=== PATIENT | male | born 1940 | race Caucasian/White ===

== ENCOUNTER 2018-07-13 11:32 | Day surgery (SDC) | payer MEDICARE, BC ==
[~2018-07-13] VITALS: Ht 180.3 cm; Wt 77.5 kg
[~2018-07-13 11:32] MED LIST: ALPR.25 PO; AMLO5; ATEN50 PO; ATOR80 PO; Alprazolam0.5 MG; Aspirin EC81 MG; CARV25 PO; CLOP75 PO; FURO40 PO; LOSA25 PO; METO25; PANT40 PO; POTASSIUM99 MG; Potassium Chlo10 ME1 PO; SELENIUM PO; Valium5 MG PO; WARF2 PO; WARF5; WARF5 PO; WARF7.5 PO; WARFARIN SODIUM 2 MG; [UNRECOGNIZED DRUG - OTHER] PO
--- NOTE | 2018-07-13 13:14 | NUR ---
07/13/18 1314 Naz Miller PT TRANSFERRED TO CHAIR WELL AND STEADY. PT ANVIK. DENIES PAIN. PT TOLERATING COFFEE
== END 2018-07-13 13:29 | disposition home or self-care (01) ==
LOC: ORSCSDS 11:32
PROVIDERS: Ophthalmology
PROC: 08RJ3JZ Replacement of Right Lens with Synthetic Substitute, Percutaneous Approach (ICD-10-PCS; principal; 2018-07-13 13:00)
DX: H25.11 Age-related nuclear cataract, right eye (principal); H21.81 Floppy iris syndrome; I10 Essential (primary) hypertension; I48.91 Unspecified atrial fibrillation; Z79.01 Long term (current) use of anticoagulants; I25.2 Old myocardial infarction; I50.9 Heart failure, unspecified; Z79.899 Other long term (current) drug therapy
CPT/HCPCS: J2001; J2250; J3010; V2632

== ENCOUNTER 2018-08-31 13:45 | Day surgery (SDC) | payer MEDICARE, BC ==
[~2018-08-31] VITALS: Ht 180.3 cm; Wt 76.6 kg
[2018-08-31] MEDS ORDERED: ENTRESTO 49 MG1 EACH (14:20)
== END 2018-08-31 15:58 | disposition home or self-care (01) ==
LOC: ORSCSDS 13:45
PROVIDERS: Ophthalmology
PROC: 08RK3JZ Replacement of Left Lens with Synthetic Substitute, Percutaneous Approach (ICD-10-PCS; principal; 2018-08-31 15:00)
DX: H25.12 Age-related nuclear cataract, left eye (principal); H21.81 Floppy iris syndrome; I10 Essential (primary) hypertension; I48.91 Unspecified atrial fibrillation; I25.2 Old myocardial infarction; Z79.01 Long term (current) use of anticoagulants; Z79.899 Other long term (current) drug therapy
CPT/HCPCS: J2001; J2250; J3010; J7120; V2632

== ENCOUNTER 2019-05-15 10:12 | Day surgery (SDC) | payer MEDICARE, BC ==
[~2019-05-15] VITALS: Ht 180.3 cm; Wt 76.0 kg
[~2019-05-15 10:12] MED LIST changes: +ENTRESTO 49 MG1 EACH
[2019-05-15] MEDS ORDERED: Valium5 MG PO (12:37)
--- NOTE | 2019-05-15 17:20 | NUR ---
ASSUMED PATIENT CARE. ASSESSED WOUND SITE, NO DRAINAGE NOTED. PATIENT HARD OF HEARING BUT ABLE TO CONVERSE WITH NURSING STAFF. NO SIGNS OF ACUTE DISTRESS. PATIENT REEDUCATED ON NEED TO KEEP HEAD BACK TO KEEP PRESSURE OFF INSERTION SITE.
--- NOTE | 2019-05-15 18:51 | NUR ---
PATIENT BP RUNNING 150S-170S SYSTOLIC SINCE ARRIVING FROM [facility]. DR. RUSS CALLED, LEFT MESSAGE. WILL PLAN TO TRY AGAIN TO GET ORDERS FOR PRN HTN MEDS.
--- NOTE | 2019-05-15 19:30 | NUR ---
PATIENT RESTING QUIETLY IN BED, LAYING FLAT DUE TO LEFT GROIN ACCESS SITE. LEFT GROIN SITE WITH DRESSING CD&I AREA AROUND SITE SOFT WITH NO OOZING, SWELLING OR BRUISING SEEN. PULSES 1+ TO BOTH FEET. PATIENT DENIES PAIN AT THIS TIME. PATIENT REPOSITIONED IN BED AND HOB ELEVATED AND KNEES ELEVATED. LEFT GROIN SITE REMAINING UNCHANGED. PATIENT USING URINAL WITHOUT DIFFICULTY.
--- NOTE | 2019-05-15 19:31 | NUR ---
RELINQUISHED PATIENT CARE.
--- NOTE | 2019-05-15 19:35 | NUR ---
PATIENT ARRIVED FROM [facility] THIS EVENING. LEFT GROIN PUNCTURE WOUND, NO SIGNS OF DISCHARGE NOTED THIS SHIFT. PATIENT REMAINED HYPERTENSIVE THROUGH END OF SHIFT, 150S-170S SYSTOLIC. PATIENT DENIES CHEST PAIN AND PRESSURE. PATIENT DENIES SHORTNESS OF BREATH.
--- NOTE | 2019-05-15 22:00 | NUR ---
PATIENT DAVIS HS MEDICATIONS AND DINNER WITHOUT DIFFICULTY. REPOSITIONING SELF IN BED FOR COMFORT. LEFT GROIN SITE REMAINS STABLE. PATIENT VERBALIZED THAT HE CAN FEEL A BIT OF A DIFFERENCE TO HIS RIGHT LEG, BUT DENIES HAVING ANY PAIN.
--- NOTE | 2019-05-16 00:50 | NUR ---
PATIENT ABLE TO STAND AT SIDE OF BED TO VOID WITHOUT DIFFICULTY. VERBALIZED RIGHT LEG FEELS HOT, LEG WARM TO TOUCH WITH GOOD PULSES. LEFT GROIN SITE REMAINS STABLE
[2019-05-16 04:23] LABS: International Normalized Ratio 1.19; Prothrombin Time Results 12.6 Sec (9.7-11.5)
--- NOTE | 2019-05-16 06:36 | NUR ---
SUMMARY PATIENT SLEEPING OFF AND ON T/O THE NIGHT. AWAKENS TO SLIGHT STIMULI. LEFT GROIN SITE SOFT WITH NO OOZING OR BRUISING SEEN. RIGHT LEG AND FOOT WARM WITH GOOD PULSES. PATIENT UP TO SIDE OF BED WITHOUT DIFFICULTY TO USE URINAL. PLAN TO GO HOME THIS MORNING.
--- NOTE | 2019-05-16 07:21 | NUR ---
ASSUMED PATIENT CARE. PATIENT RESTING COMFORTABLY IN BED. LEFT GROUND PUNCTURE SITE ASSESSED, NON-TENDER AND NO DISCHARGE NOTED. NO SIGNS OF ACUTE DISTRESS. WCTM.
--- NOTE | 2019-05-16 13:20 | NUR ---
PATIENT PROVIDED DISCHARGE INFORMATION, EDUCATED ON WOUND CARE FOR GROIN PUNCTURE SITE, REASONS TO RETURN TO THE HOSPITAL, AND FOLLOW-UP INFORMATION. PATIENT VERBALIZED UNDERSTANDING. PATIENT LEFT VIA WHEELCHAIR, NO SIGNS OF ACUTE DISTRESS.
== END 2019-05-16 13:25 | disposition home or self-care (01) ==
LOC: MHTC 10:12 → PCU 17:17 → MHTC 05-16 13:25
PROVIDERS: Radiology Diagnostic Radiology
DX: I70.211 Atherosclerosis of native arteries of extremities with intermittent claudication, right leg (principal); I13.0 Hypertensive heart and chronic kidney disease with heart failure and stage 1 through stage 4 chronic kidney disease, or unspecified chronic kidney disease; N18.3 Chronic kidney disease, stage 3 (moderate); I50.9 Heart failure, unspecified; E78.5 Hyperlipidemia, unspecified; F17.210 Nicotine dependence, cigarettes, uncomplicated; Z88.5 Allergy status to narcotic agent; Z79.02 Long term (current) use of antithrombotics/antiplatelets; Z79.01 Long term (current) use of anticoagulants; Z79.899 Other long term (current) drug therapy
CPT/HCPCS: 36415; 37225; 37228; 37232; 75625; 75716; 75774; 85347; 85610; 99152; 99153; A9270-GY; C1714; C1725; C1760; C1769; C1887; C1894; C2623; J1644; J2250; J3010; J7030; Q9967

== ENCOUNTER → 2020-02-05 | Outpatient (CLI) | payer MEDICARE, BC ==
[2020-02-05 18:35] LABS: Creatinine, Urine Random 71.5 mg/dL (27.00-270.00); Protein, Urine Random 6.4 mg/dL (0.0-11.9)
== END | disposition home or self-care (01) ==
LOC: LAB SHORT 15:03 → LAB 15:03
PROVIDERS: Internal Medicine
DX: N18.30 Chronic kidney disease, stage 3 unspecified (principal)
CPT/HCPCS: 82570; 84156

== ENCOUNTER 2020-04-27 11:26 | Emergency (ER) | payer MEDICARE, BC ==
[~2020-04-27] VITALS: Ht 180.3 cm; Wt 75.3 kg
[2020-04-27] MEDS ORDERED: ELIQUIS2.5 M1 PO (12:10)
[2020-04-27] MEDS ORDERED: ELIQUIS2.5 MG PO (13:02)
== END 2020-04-27 13:08 | disposition home or self-care (01) ==
LOC: ER 11:26
DX: Z76.0 Encounter for issue of repeat prescription (principal); F17.200 Nicotine dependence, unspecified, uncomplicated; Z79.01 Long term (current) use of anticoagulants; Z79.02 Long term (current) use of antithrombotics/antiplatelets; Z88.8 Allergy status to other drugs, medicaments and biological substances; Z88.5 Allergy status to narcotic agent
CPT/HCPCS: 99281

== ENCOUNTER → 2020-07-11 | Outpatient (CLI) | payer MEDICARE, BC ==
[~2020-07-11] MED LIST changes: +ELIQUIS2.5 M1 PO; +ELIQUIS2.5 MG PO
== END ==
LOC: LAB SHORT 14:30
DX: L02.31 Cutaneous abscess of buttock (principal)
CPT/HCPCS: 87070; 87075; 87077; 87186; 87205

== ENCOUNTER 2022-10-27 11:12 | Day surgery (SDC) | payer MEDICARE, BC ==
[~2022-10-27] VITALS: Ht 154.9 cm; Wt 73.6 kg
[2022-10-27] VITALS (7 sets, daily range): BP systolic 141–178; BP diastolic 67–90
[~2022-10-27 11:12] MED LIST changes: +ALLO300 PO; +ATOR20 PO; +Carvedilol12.5 MG PO
--- NOTE | 2022-10-27 12:51 | NUR ---
PATIENT TO THE [facility]. 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 SPOKE WITH DR. RUSS. PLAN TO KEEP OVERNIGHT.
--- NOTE | 2022-10-27 14:58 | NUR ---
6645 PATIENT ARRIVED FROM THE [facility]. SBAR RECEIVED FROM LYNN ALVARADO. LFA WITH ANGIOSEAL IN PLACE. CDI, NO BLEEDING, NO HEMATOMA NOTED. PATIENT PLACED ON THE MONITOR, CALL LIGHT IN REACH.
--- NOTE | 2022-10-27 15:36 | NUR ---
1535 PATIENT SLEEPING. LEFT GROIN UNCHANGED.
--- NOTE | 2022-10-27 17:29 | NUR ---
1700 PATIENT UP OOB TO THE RESTROOM, GAIT UPSTEADY BUT UNASSISTED. REPORT CALLED TO RN FOR ROOM 313.
--- NOTE | 2022-10-27 17:31 | NUR ---
PATIENT TRANSFERRED TO ROOM 313 VIA WHEELCHAIR. LFA CDI, NO BLEEDING, NO HEMATOMA, NO PAIN.
--- NOTE | 2022-10-27 17:59 | NUR ---
PT ARRIVED TO ROOM @1745 VIA WHEELCHAIR. PT PLEASANT AND COOPERATIVE. PT A&O X4. PER LYNN MCFARLAND, PT CAN LEAVE EARLY TOMORROW MORNING. CAR IN PARKING LOT. D/C DONE PER REPORTING RN. [place] GROIN CLOSURE W/O COMPLICATIONS. CALL LIGHT IN REACH. WILL CONTINUE TO MONITOR.
[2022-10-28 03:02] VITALS: BP 149/72
--- NOTE | 2022-10-28 04:15 | NUR ---
SHIFT SUMMARY. SHIFT HAS BEEN UNREMARKABLE. PT TOOK 2100 MEDICATIONS WITHOUT DIFFICULTY AND HAS BEEN RESTING COMFORTABLY SINCE. CALLS APPROPRIATELY. HAS NOT BEEN ABLE TO SLEEP WELL BUT REFUSED ANY SLEEP AIDS WHEN PROMPTED. VERY [place]. AOX4, PLEASANT, COOPERATIVE WITH CARE. NO PAIN REPORTED THIS SHIFT. BED LOCKED IN LOWEST POSITION. CALL LIGHT LEFT WITHIN REACH.
[2022-10-28 05:01] LABS: Hematocrit 42.1 % (37.0-53.0); Hemoglobin 14.1 g/dL (13.5-17.5); Mean Corpuscular HGB 30.8 pg (26.0-34.0); Mean Corpuscular HGB Conc 33.5 g/dL (31.5-36.5); Mean Corpuscular Volume 92 fL (80-100); Mean Platelet Volume 10.7 fL (9.1-12.4); Platelet Count 158 K/mm3 (150-400); RDW Coefficient Variation 14.1 % (11.7-14.2); RDW Standard Deviation 47.1 fL (35.1-46.3); Red Blood Cell Count 4.58 M/mm3 (4.30-5.90); White Blood Cell Count 8.06 K/mm3 (4.00-11.30)
[2022-10-28 05:33] LABS: Albumin, Blood 3.4 g/dL (3.4-5.0); Bilirubin, Total 1.3 mg/dL (0.1-1.0); Bun/Creatinine Ratio 18.1 (12.0-20.0); Calcium, Blood 8.7 mg/dL (8.5-10.1); Creatinine, Blood 2.26 mg/dL (0.60-1.20); Globulin, Blood 3.4 g/dL (2.2-4.0); Potassium, Blood 4.3 mmol/L (3.5-5.5); Total Protein, Blood 6.8 g/dL (6.4-8.2)
[2022-10-28 07:26] VITALS: BP 146/80
--- NOTE | 2022-10-28 16:43 | NUR ---
DISCHARGE SUMMARY PATIENT WITH NO ACUTE EVENTS TODAY. PATIENT EDUCATION PACKET FROM [facility] GIVEN TO PATIENT AND CONSENTS SIGNED. PATIENT LEFT FLOOR AT 1405 BY FOOT AND ESCORTED BY MINE PROMOTOR DOWN TO 2ND FLOOR EXIT WITH NO ISSUES. PATIENT STATES HE WILL BE DRIVING HIMSELF HOME.
== END 2022-10-28 14:25 | disposition home or self-care (01) ==
LOC: MHTC 11:12 → MEDS 11:12 → MHTC 11:32 → MEDS 16:33 → MHTC 10-28 14:25
PROVIDERS: Nurse Practitioner Acute Care
DX: I70.202 Unspecified atherosclerosis of native arteries of extremities, left leg (principal); I13.0 Hypertensive heart and chronic kidney disease with heart failure and stage 1 through stage 4 chronic kidney disease, or unspecified chronic kidney disease; N18.30 Chronic kidney disease, stage 3 unspecified; I50.22 Chronic systolic (congestive) heart failure; I48.91 Unspecified atrial fibrillation; Z79.899 Other long term (current) drug therapy; K21.9 Gastro-esophageal reflux disease without esophagitis; F17.210 Nicotine dependence, cigarettes, uncomplicated; Z88.5 Allergy status to narcotic agent; Z79.01 Long term (current) use of anticoagulants; E78.5 Hyperlipidemia, unspecified
CPT/HCPCS: 36415; 76937; 80053; 85027; 99152; 99153; A9270; C1725; C1760; C1769; C1874; C1876; C1887; C1894; J1644; J2250; J3010; J7030; J7040; J7050; Q9967